=== PATIENT | male | born 1970 | race Caucasian/White ===

== ENCOUNTER 2017-10-23 07:46 | Emergency (ER) | payer OTHER ==
--- NOTE | 2017-10-23 07:50 | EDM.PDOCBH ---
ED HPI GENERAL MEDICAL PROBLEM - General Chief Complaint: Behavioral/Psych Stated Complaint: IN BY AMBULANCE Time Seen by Provider: 10/23/17 07:48 Source of Information: Reports: Patient, EMS, EMS Notes Reviewed, RN, RN Notes Reviewed History Limitations: Reports: Altered Mental Status, Intoxication - History of Present Illness INITIAL COMMENTS - FREE TEXT/NARRATIVE: Pt to ER per [facility]. Patient speech is very slurred. Patient admits to taking 6 ambien with whiskey. He states he was trying to "get it done". When asked if he wanted to , he states "yes". EMS states a family member called for a welfare check on the patient. EMS also states the patient had sent a text to his father and his brother stating that he wanted to end his life. Onset: Today, Sudden - Related Data Allergies Allergy/AdvReac Type Severity Reaction Status Date / Time No Known Allergies Allergy Verified 10/23/17 08:11 Home Meds: Home Meds Eszopiclone 3 mg PO BEDTIME PRN 10/23/17 [History] FLUoxetine HCl [Fluoxetine HCl] 40 mg PO DAILY 10/23/17 [History] Prazosin HCl [Prazosin] 2 mg PO BEDTIME 10/23/17 [History] Zolpidem Tartrate 20 mg PO BEDTIME 10/23/17 [History] ED ROS GENERAL - Review of Systems Review Of Systems: ROS reveals no pertinent complaints other than HPI. ED EXAM, BEHAVIORAL HEALTH - Physical Exam Exam: See Below Exam Limited By: Altered Mental Status General Appearance: Lethargic, Obtunded Eye Exam: Bilateral Eye: PERRL (1-2, sluggish) Ears: Normal External Exam, Hearing Grossly Normal Nose: Normal Inspection Throat/Mouth: Normal Inspection, Normal Voice, No Airway Compromise Head: Normocephalic, Facial Swelling (swelling and ecchymosis above the right eyebrow) Neck: Normal Inspection, Supple, Non-Tender, Full Range of Motion Respiratory/Chest: No Respiratory Distress, Lungs Clear, Normal Breath Sounds, No Accessory Muscle Use, Chest Non-Tender Cardiovascular: Normal Peripheral Pulses, Regular Rate, Rhythm, No Edema, No Gallop, No JVD, No Murmur, No Rub GI/Abdominal: Normal Bowel Sounds, Soft, Non-Tender, No Organomegaly, No Distention, No Abnormal Bruit, No Mass, Pelvis Stable (Male) Exam: Deferred Rectal (Males) Exam: Deferred Back Exam: Normal Inspection, Full Range of Motion Extremities: Normal Inspection, Normal Range of Motion, Non-Tender, No Pedal Edema, Normal Capillary Refill Neurological: Disoriented to Place, Disoriented to Time, Inattentive Psychiatric: Depressed Mood, Flat Affect, Incoherent, Disoriented, Inattentive, Poor Eye Contact, Suicidal Plan, Suicidal Thoughts Skin Exam: Warm, Dry, Intact, Normal color, No rash EKG INTERPRETATION EKG Date: 10/23/17 Time: 07:52 Rhythm: Other (sinus tach) Rate (Beats/Min): 101 Sidon: LAD-Left Sidon Deviation P-Wave: Present QRS: Normal ST-T: Normal QT: Normal Comparison: NA - No Prior EKG COURSE, BEHAVIORAL HEALTH COMP - Course Vital Signs: Last Vital Signs Temp 98.0 F 10/23/17 10:51 Pulse 115 H 10/23/17 10:51 Resp 14 10/23/17 10:51 BP 159/94 H 10/23/17 10:51 Pulse Ox 94 L 10/23/17 10:51 Orders, Labs, Meds: Active Orders 24 hr Category Date Time Status EKG Documentation Completion [RC] STAT Care 10/23/17 07:50 Active Peripheral IV Care [RC] . DIRECTED Care 10/23/17 07:50 Active DRUG SCREEN URINE BIORAD [URCHEM] Stat Lab 10/23/17 08:19 Ordered UA W/MICROSCOPIC [URIN] Stat Lab 10/23/17 08:19 Ordered Sodium Chloride 0.9% [Normal Saline] 1,000 ml Med 10/23/17 11:47 Active IV .BOLUS Sodium Chloride 0.9% [Saline Flush] Med 10/23/17 07:50 Active 10 ml FLUSH ASDIRECTED PRN Peripheral IV Insertion Adult [OM.PC] Stat Oth 10/23/17 07:50 Ordered Medication Orders Sodium Chloride (Normal Saline) 1,000 mls @ 999 mls/hr IV .BOLUS ONE Stop: 10/23/17 12:47 Last Admin: 10/23/17 11:55 Dose: 999 mls/hr Sodium Chloride (Saline Flush) 10 ml FLUSH ASDIRECTED PRN PRN Reason: Keep Vein Open Last Admin: 10/23/17 08:31 Dose: 10 ml Laboratory Tests 10/23/17 10/23/17 10/23/17 Range/Units 07:52 07:52 08:19 WBC 7.3 (5.0-10.0) 10^3/uL RBC 5.09 (4.6-6.2) 10^6/uL Hgb 16.3 (14.0-18.0) g/dL Hct 47.2 (40.0-54.0) % MCV 92.7 (80-100) fL MCH 32.0 (27.0-34.0) pg MCHC 34.5 (33.0-35.0) g/dL Plt Count 234 (150-450) 10^3/uL Neut % (Auto) 78.4 H (42.2-75.2) % Lymph % (Auto) 14.3 L (20.5-50.1) % [place] % (Auto) 6.7 (2-8) % Eos % (Auto) 0.3 L (1.0-3.0) % Baso % (Auto) 0.3 (0.0-1.0) % Sodium 139 (135-145) mmol/L Potassium 4.4 (3.6-5.0) mmol/L Chloride 102 (101-111) mmol/L Carbon Dioxide 21.0 (21.0-31.0) mmol/L Anion Gap 20.4 BUN 19 H (7-18) mg/dL Creatinine 1.0 (0.6-1.3) mg/dL Est Cr Clr Drug Dosing 91.32 mL/min Estimated GFR (MDRD) > 60 BUN/Creatinine Ratio 19.00 Glucose 86 (74-105) mg/dL Calcium 9.0 (8.4-10.2) mg/dl Total Bilirubin 1.0 (0.2-1.0) mg/dL AST 45 H (10-42) IU/L ALT 36 (10-60) IU/L Alkaline Phosphatase 88 (42-121) IU/L Total Protein 7.9 (6.7-8.2) g/dl Albumin 4.2 (3.2-5.5) g/dl Globulin 3.7 Albumin/Globulin Ratio 1.14 Urine Color Yellow (YELLOW) Urine Appearance Clear (CLEAR) Urine pH 5.5 (5.0-9.0) Ur Specific [place] 1.020 (1.005-1.030) Urine Protein 30 H (NEGATIVE) Urine Glucose (UA) Negative (NEGATIVE) Urine Ketones 40 H (NEGATIVE) Urine Occult Blood Negative (NEGATIVE) Urine Nitrite Negative (NEGATIVE) Urine Bilirubin Negative (NEGATIVE) Urine Urobilinogen 0.2 (0.2-1.0) mg/dL Ur Leukocyte Esterase Negative (NEGATIVE) Urine RBC 0-5 /HPF Urine WBC 0-5 (0-5/HPF) /HPF Ur Epithelial Cells Occasional /HPF Amorphous Sediment Few (0/HPF) /HPF Urine Bacteria Occasional (0-FEW/HPF) /HPF Salicylates < 4 Urine Opiates Screen (NEGATIVE) Ur Oxycodone Screen (NEGATIVE) Urine Methadone Screen (NEGATIVE) Acetaminophen < 10 Ur Barbiturates Screen (NEGATIVE) U Tricyclic Antidepress (NEGATIVE) Ur Phencyclidine Scrn (NEGATIVE) Ur Amphetamine Screen (NEGATIVE) U Methamphetamines Scrn (NEGATIVE) Urine MDMA Screen (NEGATIVE) U Benzodiazepines Scrn (NEGATIVE) Urine Cocaine Screen (NEGATIVE) U Marijuana (THC) Screen (NEGATIVE) Ethyl Alcohol 230 mg/dL 10/23/17 Range/Units 08:19 WBC (5.0-10.0) 10^3/uL RBC (4.6-6.2) 10^6/uL Hgb (14.0-18.0) g/dL Hct (40.0-54.0) % MCV (80-100) fL MCH (27.0-34.0) pg MCHC (33.0-35.0) g/dL Plt Count (150-450) 10^3/uL Neut % (Auto) (42.2-75.2) % Lymph % (Auto) (20.5-50.1) % [place] % (Auto) (2-8) % Eos % (Auto) (1.0-3.0) % Baso % (Auto) (0.0-1.0) % Sodium (135-145) mmol/L Potassium (3.6-5.0) mmol/L Chloride (101-111) mmol/L Carbon Dioxide (21.0-31.0) mmol/L Anion Gap BUN (7-18) mg/dL Creatinine (0.6-1.3) mg/dL Est Cr Clr Drug Dosing mL/min Estimated GFR (MDRD) BUN/Creatinine Ratio Glucose (74-105) mg/dL Calcium (8.4-10.2) mg/dl Total Bilirubin (0.2-1.0) mg/dL AST (10-42) IU/L ALT (10-60) IU/L Alkaline Phosphatase (42-121) IU/L Total Protein (6.7-8.2) g/dl Albumin (3.2-5.5) g/dl Globulin Albumin/Globulin Ratio Urine Color (YELLOW) Urine Appearance (CLEAR) Urine pH (5.0-9.0) Ur Specific [place] (1.005-1.030) Urine Protein (NEGATIVE) Urine Glucose (UA) (NEGATIVE) Urine Ketones (NEGATIVE) Urine Occult Blood (NEGATIVE) Urine Nitrite (NEGATIVE) Urine Bilirubin (NEGATIVE) Urine Urobilinogen (0.2-1.0) mg/dL Ur Leukocyte Esterase (NEGATIVE) Urine RBC /HPF Urine WBC (0-5/HPF) /HPF Ur Epithelial Cells /HPF Amorphous Sediment (0/HPF) /HPF Urine Bacteria (0-FEW/HPF) /HPF Salicylates Urine Opiates Screen Negative (NEGATIVE) Ur Oxycodone Screen Negative (NEGATIVE) Urine Methadone Screen Negative (NEGATIVE) Acetaminophen Ur Barbiturates Screen Negative (NEGATIVE) U Tricyclic Antidepress Negative (NEGATIVE) Ur Phencyclidine Scrn Negative (NEGATIVE) Ur Amphetamine Screen Negative (NEGATIVE) U Methamphetamines Scrn Negative (NEGATIVE) Urine MDMA Screen Negative (NEGATIVE) U Benzodiazepines Scrn Negative (NEGATIVE) Urine Cocaine Screen Negative (NEGATIVE) U Marijuana (THC) Screen Negative (NEGATIVE) Ethyl Alcohol mg/dL Medications Generic Name Dose Route Start Last Admin Trade Name Freq PRN Reason Stop Dose Admin Sodium Chloride 1,000 mls @ 999 mls/hr 10/23/17 11:47 10/23/17 11:55 Normal Saline IV 10/23/17 12:47 999 mls/hr .BOLUS ONE Administration Sodium Chloride 10 ml 10/23/17 07:50 10/23/17 08:31 Saline Flush FLUSH 10 ml ASDIRECTED PRN Administration Keep Vein Open Discontinued Medications Generic Name Dose Route Start Last Admin Trade Name Freq PRN Reason Stop Dose Admin Lorazepam 1 mg 10/23/17 11:47 10/23/17 11:55 Ativan IVPUSH 10/23/17 11:48 1 mg ONETIME ONE Administration Discharge vs Psych Eval/Treatment:: 10/23/17 12:01 Discussed the patient case with Dr. [facility]jo at [facility] [place], who agreed to accept the patient. [facility] transferred to [facility] [place] per ambulance. Departure - Departure Time of Disposition: 11:29 Disposition: DC/Tfer to Acute Hospital 02 Condition: Fair Clinical Impression: Alcohol abuse, Suicidal ideation Overdose Qualifiers: Encounter type: initial encounter Injury intent: intentional self-harm Qualified Code(s): T50.902A - Poisoning by unspecified drugs, medicaments and biological substances, intentional self-harm, initial encounter - Discharge Information *PRESCRIPTION DRUG MONITORING PROGRAM REVIEWED*: No *COPY OF PRESCRIPTION DRUG MONITORING REPORT IN PATIENT MARGY: No Forms: ED Department Discharge, Interfacility Transfer EMTALA - My Orders Last 24 Hours: My Active Orders 10/23/17 07:50 EKG Documentation Completion [RC] STAT Peripheral IV Care [RC] . DIRECTED Sodium Chloride 0.9% [Saline Flush] 10 ml FLUSH ASDIRECTED PRN Peripheral IV Insertion Adult [OM.PC] Stat 10/23/17 08:19 DRUG SCREEN URINE BIORAD [URCHEM] Stat UA W/MICROSCOPIC [URIN] Stat 10/23/17 11:47 Sodium Chloride 0.9% [Normal Saline] 1,000 ml IV .BOLUS - Assessment/Plan Last 24 Hours: My Active Orders 10/23/17 07:50 EKG Documentation Completion [RC] STAT Peripheral IV Care [RC] . DIRECTED Sodium Chloride 0.9% [Saline Flush] 10 ml FLUSH ASDIRECTED PRN Peripheral IV Insertion Adult [OM.PC] Stat 10/23/17 08:19 DRUG SCREEN URINE BIORAD [URCHEM] Stat UA W/MICROSCOPIC [URIN] Stat 10/23/17 11:47 Sodium Chloride 0.9% [Normal Saline] 1,000 ml IV .BOLUS
[2017-10-23 08:19] LABS: ACETAMINOPHEN < 10; ANION GAP 20.4; CHLORIDE,CL 102 mmol/L (101-111); SODIUM,NA 139 mmol/L (135-145)
[2017-10-23] MEDS: Sodium Chloride 0.9% 10 ML Syringe FLUSH PRN (08:31)
[2017-10-23] MEDS: Sodium Chloride 0.9% 1,000 ML IV ONE (11:55)
[2017-10-23] MEDS: LORazepam 2 MG/ML Syringe IVPUSH ONE (11:55)
--- NOTE | 2017-10-24 11:26 | EKG ---
10/23/2017 - CROW DAI - TIME: 7:52 a.m. FINDINGS: Normal sinus rhythm at 101 as per my reading. [facility] /[id number]
--- NOTE | 2017-10-24 13:29 | EKG ---
10/23/2017 - CROW DAI - TIME: 7:52 a.m. FINDINGS: As per my reading, sinus tachycardia with left axis deviation. [facility] /[id number]
== END 2017-10-23 12:00 ==
LOC: DL.ED 07:46
DX: T42.6X2A Poisoning by other antiepileptic and sedative-hypnotic drugs, intentional self-harm, initial encounter (principal); R47.81 Slurred speech; F10.10 Alcohol abuse, uncomplicated; Z79.899 Other long term (current) drug therapy; Y90.7 Blood alcohol level of 200-239 mg/100 ml
CPT/HCPCS: 36415; 80053; 80305; 81001; 85025; 93005; 93010; 96374; 99284; 99285; G0480; J2060; J7030; J7050